=== PATIENT | male | born 1985 | race Caucasian/White ===

== ENCOUNTER 2025-04-28 08:18 | Emergency (ER) | payer OTHER ==
[2025-04-28 09:09] LABS: #Basophils 0.03 10x3/uL (0.0-0.2); #Eosinophils 0.08 10x3/uL (0.0-0.5); #Monocytes 0.79 10x3/uL (0.0-1.1); #Neutrophils 10.02 10x3/uL (1.5-8.4); %Basophils 0.3 % (0.0-2.0); %Eosinophils 0.7 % (0.0-6.0); %Lymphocytes 6.6 % (18.0-47.0); %Monocytes 6.7 % (0.0-10.0); %Neutrophils 85.2 % (40.0-75.0); Hematocrit 40.1 % (38.8-50.0); Hemoglobin 14.3 g/dL (13.5-17.5); Mean Corpuscular Hemoglobin 28.1 pg (27.0-33.0); Mean Corpuscular Volume 78.8 fL (81.2-95.1); Platelet Count 214 10x3/uL (150-450); Red Blood Cell (RBC) Count 5.09 10x6/uL (4.32-5.72); White Blood Cell (WBC) Count 11.75 10x3/uL (3.5-10.5)
[2025-04-28] MEDS ORDERED: levETIRAcetam 500 MG (5 mL) VIAL ONE (09:22)
[2025-04-28 09:25] LABS: Acetaminophen Less than 10 mcg/mL (Less than 10); Salicylate Less than 8.0 mg/dL (Less than 8.0)
[2025-04-28 09:26] LABS: ALT (SGPT) 16 U/L (Less than 45); AST (SGOT) 20 U/L (11-34); Albumin 4.7 g/dL (3.1-4.5); Alkaline Phosphatase 62 U/L (40-110); Anion Gap 16 mmol/L (10-20); BUN (Urea Nitrogen) 9 mg/dL (8.9-20.6); Bilirubin, Total 0.3 mg/dL (0.3-1.2); Calc. Creatinine Clearance 0 mL/min (70-130); Calcium 9.0 mg/dL (7.8-10.44); Carbon Dioxide 19 mmol/L (22-29); Chloride 101 mmol/L (98-107); Globulin 2.6 g/dL (2.4-3.5); Glucose 100 mg/dL (70-105); Potassium 3.9 mmol/L (3.5-5.1); Sodium 132 mmol/L (136-145)
[2025-04-28 09:29] LABS: Troponin I 0.010 ng/mL (< 0.028)
[2025-04-28 09:45] LABS: Glucose, Urine (Dipstick) Normal (Negative); Leukocyte Negative (Negative); Protein, Urine (Dipstick) 30 mg/dl (Neg-Trace); Specific Gravity, Urine 1.020 (1.005-1.030)
[2025-04-28 09:54] LABS: Cocaine Metabolite Screen Negative (Negative); THC/Cannabinoid Screen Negative (Negative); Tricyclic Screen Negative (Negative)
[2025-04-28 10:19] LABS: Bacteria/HPF None Seen HPF (None Seen); CAUTI Indications for Culture Pelvic or flank pain; WBC/HPF None Seen HPF (0-3)
[2025-04-28 10:20] LABS: Urine Culture Reflex No No
== END 2025-04-28 13:15 ==
LOC: CSHERS 08:18
DX: G40.909 Epilepsy, unspecified, not intractable, without status epilepticus (principal)
CPT/HCPCS: 36415; 70450; 71045; 80053; 80175; 80177; 80183; 80306; 80307; 81001; 83605; 83880; 84484; 85025; 93005; 96374; J1953